=== PATIENT | male | born 1955 | race Caucasian/White ===

== ENCOUNTER 2019-07-04 10:38 | Outpatient (CLI) | payer MEDICARE, OTHER ==
--- NOTE | 2019-07-04 11:36 | RAD ---
XR Ribs Rt>=2 view STANDARD HISTORY: Right rib pain. No injury. COMPARISON: None. FINDINGS: An old midshaft clavicular fracture is noted. There are mild arthritic changes of the shoul debra. There are no signs of fracture. No lytic or blastic bone lesions. IMPRESSION: No acute findings.
== END 2019-07-04 10:39 | disposition home or self-care (01) ==
LOC: SCSRAD 10:38
PROVIDERS: ATTEND Family Medicine
DX: R07.89 Other chest pain (principal)

== ENCOUNTER 2020-04-14 08:54 | Outpatient (CLI) | payer MEDICARE, OTHER ==
--- NOTE | 2020-04-14 09:48 | CT ---
CT abdomen with IV and oral contrast HISTORY: Upper abdomen pain. FINDINGS: The lung bases are clear. Stomach and duodenum are unremarkable. No evidence of bowel obstr uction within the abdomen. Liver and spleen are within normal limits. Parenchymal scarring and dystrophic cortical calcification apparent at the superior pole left kidney. A cyst at the superior pole right kidney is 1.1 cm greatest diameter. No evidence of urinary tract obstruction. No free air or free fluid within the abdomen. The pelvis was not imaged. Degenerative changes of the lower lumbar spine, including significant central canal stenosis at the L 4-5 level. IMPRESSION : No acute abnormalities are demonstrated. Chronic-type findings as detailed above. Degenerative changes lower lumbar spine with likely significant central canal stenosis at the L4-5 le alba. Correlate for pseudo-claudication.
== END 2020-04-14 08:55 | disposition home or self-care (01) ==
LOC: BICCT 08:54
PROVIDERS: ATTEND Family Medicine
DX: R10.13 Epigastric pain (principal); M54.6 Pain in thoracic spine; M47.816 Spondylosis without myelopathy or radiculopathy, lumbar region; M48.061 Spinal stenosis, lumbar region without neurogenic claudication; N28.1 Cyst of kidney, acquired; N28.89 Other specified disorders of kidney and ureter
CPT/HCPCS: 74160; 82565